=== PATIENT | female | born 1945 | race Caucasian/White ===

== ENCOUNTER 2019-07-29 18:32 | Emergency (ER) | payer OTHER ==
[2019-07-29 18:49] VITALS: BP 141/78; PULSE 78; TEMP 98.5
--- NOTE | 2019-07-29 18:50 | PDOC ---
Rapid Medical Evaluation Chief Complaint: Cold Symptoms Time Seen by Provider: 07/29/19 18:49 Medical Evaluation: Allergies Allergy/AdvReac Type Severity Reaction Status Date / Time No Known Allergies Allergy Verified 07/29/19 18:46 Vital Signs Temp Pulse Resp BP Pulse Ox 98.5 F 78 17 141/78 99 07/29/19 18:46 07/29/19 18:46 07/29/19 18:46 07/29/19 18:46 07/29/19 18:46 07/29/19 18:49 HPI: COVID-19 CDC guideline data points: The patient is a 72-year-old female with HTN who presents with suspected COVID- 19 with associated symptoms of fever and dry cough. ill with same. ROS: NEGATIVE: difficulty breathing, shortness of breath, chest pain, lightheadedness, dizziness, nausea, vomiting and diarrhea. Other 12 point ROS reviewed and negative. Exam: General: NAD, Well-Appearing, Awake, Alert Oriented x3. Vital signs stable. ENT: No rhinorrhea or nasal congestion. Neck: FROM, no midline tenderness. Lungs: Clear to auscultation bilaterally without wheezes, rhonchi or rales. Normal excursion. Patient is able to speak in full sentences. Heart: HR: Regular rhythm, S1-S2 present, no murmurs rubs or gallops. Abdomen: Non-distended. MSK/Extremities: No decrease ROM, No obvious deformities. No obvious cyanosis noted. Neuro: Normal Gait, Cranial Nerves II through XII Grossly Intact. Skin: No obvious rashes, bruising. Color Normal Appearing. Assessment/Plan: [Cough/fever] Denies recent travel and known COVID exposure. Patient does not meet testing criteria at this time. ASSESSMENT: Denies recent travel and known Covid exposure. Normal exam. Treatment: Isolation Supportive care Drive-thru testing and ED return precautions reviewed Discharge Disposition - Diagnosis Fever - Discharge Dispostion Disposition: HOME Condition at time of disposition: Decision to Admit order: No - Referrals - Patient Instructions Printed Discharge Instructions: [facility]-Coronavirus Instructions, [facility] COVID-19 Isolation Protocol Additional Instructions: You were seen for your cough and possible Coronavirus (COVID-19) Please call the Department of Health testing center to make an appointment at or you can call [facility] at from 8:30 AM to 6 PM; or you can visit the [facility] website: [email or web address] for more information about testing at the [facility]. Take Tylenol 650 mg every 6 hours as needed for fever or pain. You may take Robitussin or other [id number] cough syrup. Follow the dosing instructions on the bottle. Warm tea, honey, and salt water gargles may help your symptoms. Please take precautions and self quarantine for 2 weeks and follow-up with your primary care doctor and the Department of Health. Return to the nearest emergency department for shortness of breath, difficulty breathing, chest pain, or if you have any changes in your symptoms. - Post Discharge Activity
== END 2019-07-29 18:52 | disposition home or self-care (01) ==
LOC: JER 18:32
DX: R50.9 Fever, unspecified (principal)
CPT/HCPCS: 99282-25